=== PATIENT | female | born 1960 | race Caucasian/White ===

== ENCOUNTER 2016-09-04 13:07 | Outpatient (CLI) | payer BC ==
--- NOTE | 2016-09-04 13:36 | DIAGNOSTIC IMAGING REPORT ---
PROCEDURE: US VENOUS - LEFT EXT INDICATION: Left thigh pain, initial encounter TECHNIQUE: Duplex sonography of the deep venous system in the left lower extremity was performed. Compression and augmentation techniques were used. COMPARISON: None. FINDINGS: Normal compression of the greater saphenous, common femoral, superficial femoral, popliteal, peroneal, and posterior tibial veins. Normal augmentation. There is no evidence of superficial or deep venous thrombosis. IMPRESSION: 1. Negative venous ultrasound of the left lower extremity. 2. Results called to Dr. Dougherty's pediatric medical assistant(Magy
== END 2016-09-04 23:00 ==
LOC: US SRH 13:07
DX: M79.652 Pain in left thigh (principal)